=== PATIENT | male | born 1995 | race American Indian/Alaskan Native ===

== ENCOUNTER 2016-05-04 | Emergency (ER) | payer SELFPAY ==
[2016-05-04 00:08] VITALS: BP 135/86
--- NOTE | 2016-05-04 09:53 | XRay Report ---
RIGHT HAND, 3 VIEWS: History: Injury, pain, swelling. Findings: A transverse fracture is identified through the mid shaft of the right fifth metacarpal. Calcified callus is identified at the fracture site suggesting a subacute to early chronic injury. Fracture lines remain evident. Anterior angulation is estimated at 28 degrees on the lateral image. The remaining bones and joint spaces are normal. Impression: Subacute to early chronic right fifth metacarpal with anterior angulation as described above. Consultation with orthopedics should be considered.
--- NOTE | 2016-05-07 15:36 | ED Elopement Review ---
ED Pt Elopement review - Call Back decision Pt Call Back Decision: Pt to F/U with PMD (follow-up with an orthopedist for ear fractured hand. You may return to the emergency department for a splint.)
== END 2016-05-04 00:15 | disposition left against medical advice (07) ==
LOC: ED
DX: M79.641 Pain in right hand (principal); M79.89 Other specified soft tissue disorders; Z53.21 Procedure and treatment not carried out due to patient leaving prior to being seen by health care provider

== ENCOUNTER 2021-01-18 18:31 | Emergency (ER) | payer SELFPAY ==
[2021-01-18 19:12] VITALS: BP 109/79
--- NOTE | 2021-01-18 19:47 | Emergency Department Report ---
- General Chief Complaint: Wound/Laceration Stated Complaint: LAC LT THUMB Time Seen by Provider: 01/18/21 19:42 Source: patient Mode of arrival: Ambulatory Limitations: No Limitations - History of Present Illness Initial Comments: Patient presents with a laceration to his left thumb. This is on the fat pad side. Patient states that he sliced it with a knife. He states that he "almost cut it in half." He states his last tetanus booster was 10 years ago or longer. He refuses a tetanus booster today. He is only complaining of localized pain to the distal thumb. He is right-hand dominant. He has no other complaints no other injuries. - Related Data Allergies Allergy/AdvReac Type Severity Reaction Status Date / Time iodine Allergy Anaphylaxis Verified 05/04/16 00:05 shellfish derived Allergy Anaphylaxis Verified 05/04/16 00:05 ED Review of Systems ROS: Stated complaint: LAC LT THUMB Other details as noted in HPI Constitutional: denies: fever Eyes: denies: eye discharge ENT: denies: throat pain Cardiovascular: denies: chest pain Gastrointestinal: denies: abdominal pain Genitourinary: denies: hematuria Musculoskeletal: as per HPI Skin: as per HPI Hematological/Lymphatic: denies: easy bruising ED Past Medical Hx - Past Medical History Previous Medical History?: Yes Hx Asthma: Yes - Surgical History Past Surgical History?: No - Family History Family history: no significant - Social History Smoking Status: Current Every Day Smoker ED Physical Exam - General Limitations: No Limitations, Other (Pulse ox was noted and normal. Is not hypoxic.) General appearance: alert, in no apparent distress - Head Head exam: Present: atraumatic, normal inspection - Eye Eye exam: Present: normal appearance, EOMI. Absent: scleral icterus - ENT ENT exam: Present: normal external ear exam - Neck Neck exam: Present: normal inspection - Respiratory Respiratory exam: Absent: respiratory distress - Cardiovascular Cardiovascular Exam: Present: other (Equal pulses) - Extremities Exam Extremities exam: Present: normal capillary refill, other (There is a 1 cm laceration to the palmar aspect of the left thumb. There is no bleeding. There is no other injury or deformity noted. This does involve the subcutaneous tissue.) - Neurological Exam Neurological exam: Present: alert, oriented X3. Absent: motor sensory deficit - Psychiatric Psychiatric exam: Present: normal affect, normal mood - Skin Skin exam: Present: warm, dry ED Course Vital Signs 01/18/21 19:09 Temperature 98.5 F Pulse Rate 66 Respiratory 16 Rate Blood Pressure 109/79 O2 Sat by Pulse 98 Oximetry - Reevaluation(s) Reevaluation #1: 01/18/21 19:47 Wound was repaired. Patient was discharged. - Laceration /Wound Repair Left Palm Finger Wound Location: upper extremity Wound Length (cm): 1 Wound's Depth, Shape: superficial Wound Explored: clean Irrigated w/ Saline (ccs): 50 Betadine Prep?: No (Chlorhexidine) Anesthesia: 1% Lidocaine Volume Anesthetic (ccs): 3 (Digital block) Wound Repaired With: sutures Suture Size/Type: 5:0 Number of Sutures: 1 Layer Closure?: No Sterile Dressing Applied?: Yes Progress: No complications - Nerve Block Consent Obtained: verbal consent Time Out Performed: Yes Local Anesthetic Used: Lidocaine 1% Amount of anesthesia used: 3 ([place]) Side: left Nerve Blocks: digital Procedure Successful: Yes Complications: none Patient Tolerated Procedure: well, no complications ED Medical Decision Making - Medical Decision Making Patient presented with a lung laceration. This was repaired primarily. There is no foreign body noted. This does not have tendon involvement. He had good range of motion of the thumb without difficulty. There is no nail involvement. Patient was treated symptomatically. Wound had been cleaned prior to arrival and here. I do not believe empiric antibiotics are necessary at this time. Critical Care Time: No Critical care attestation.: If time is entered above; I have spent that time in minutes in the direct care of this critically ill patient, excluding procedure time. ED Disposition Clinical Impression: Thumb laceration Qualifiers: Encounter type: initial encounter Damage to nail status: without damage Foreign body presence: without foreign body Laterality: left Qualified Code(s): S61.012A - Laceration without foreign body of left thumb without damage to nail, initial encounter Disposition: HOME / SELF CARE / HOMELESS Is pt being admited?: No Condition: Stable Instructions: Laceration Care, Adult, Sutured Wound Care Additional Instructions: Keep the thumb clean. Have the stitches removed in 10 days. Follow-up with your regular doctor for recheck. Return for problems or concerns. Referrals: EVELIO LINARES MD [Referring] - 3-5 Days OSWALD GONZALEZ MD [Staff Physician] - 3-5 Days
== END 2021-01-18 21:14 | disposition home or self-care (01) ==
LOC: ED 18:31
DX: S61.012A Laceration without foreign body of left thumb without damage to nail, initial encounter (principal); J45.909 Unspecified asthma, uncomplicated; F17.200 Nicotine dependence, unspecified, uncomplicated; Z88.6 Allergy status to analgesic agent; Z91.013 Allergy to seafood; W26.0XXA Contact with knife, initial encounter; Y93.89 Activity, other specified; Y92.89 Other specified places as the place of occurrence of the external cause; Y99.8 Other external cause status
CPT/HCPCS: 99281

== ENCOUNTER 2021-04-25 18:45 | Emergency (ER) | payer SELFPAY | END 2021-04-25 18:50 | disposition left against medical advice (07) | LOC: ED 18:45 | DX: M79.643 Pain in unspecified hand (principal); Z53.21 Procedure and treatment not carried out due to patient leaving prior to being seen by health care provider ==